=== PATIENT | female | born 1970 | race Caucasian/White ===

== ENCOUNTER → 2017-02-22 | Outpatient (CLI) | payer BC ==
[~2017-02-22] MED LIST: ECHI80CA PO; MELO-156 PO; PHEN15CA PO; PSYL0.5215 PO; SOY155CA PO; [UNRECOGNIZED DRUG - CODE] IV
--- NOTE | 2017-02-22 09:43 | RAD ---
DATE: 02/22/2017 EXAM: MAMMO [facility] SCREENING BILATERAL HISTORY: Routine screening COMPARISON: 02/17/2016 This study was interpreted with the benefit of Computerized Aided Detection (CAD). FINDINGS: 2-D and 3-D tomosynthesis imaging was performed in CC and MLO projections. There are scattered fibroglandular densities in the breasts. There is a cluster of 2 benign-appearing lymph node type densities in the posterolateral aspect of the right breast which appear unchanged. No new or enlarging breast densities are seen. No suspicious microcalcifications are evident. IMPRESSION: Stable mammograms without evidence of malignancy. BI-RADS CATEGORY: 2 BENIGN FINDING(S) RECOMMENDED FOLLOW-UP: 12M 12 MONTH FOLLOW-UP PQRS compliance statement: Patient information was entered into a reminder system with a target due date for the next mammogram. Mammography is a sensitive method for finding small breast cancers, but it does not detect them all and is not a substitute for careful clinical examination. A negative mammogram does not negate a clinically suspicious finding and should not result in delay in biopsying a clinically suspicious abnormality. "Our facility is accredited by the [employer]ammography [employer]."
== END | disposition home or self-care (01) ==
LOC: MAMMO 07:53
PROVIDERS: ATTEND Physician Assistant Medical
DX: Z12.31 Encounter for screening mammogram for malignant neoplasm of breast (principal)
CPT/HCPCS: 77063; G0202; 77067

== ENCOUNTER 2017-09-13 14:33 | Emergency (ER) | payer BC ==
[~2017-09-13 14:33] MED LIST changes: -MELO-156 PO; +MELO7.5T29 PO; -PHEN15CA PO; +PHEN15CA2 PO
[2017-09-13] MEDS ORDERED: BUPIVACAINE MPF 0.5% 30 ML VIAL. ONE (15:30)
[2017-09-13] MEDS ORDERED: BUPIVACAINE MPF 0.5% 30 ML VIAL. SQ ONE (15:45)
--- NOTE | 2017-09-13 15:51 | RAD ---
Indication injury to the third digit. AP view of the left foot was obtained as well as additional oblique and lateral imaging targeted to the third digit. There is a traumatic nondisplaced fracture involving the base of the tuft of the distal phalanx. No additional bony abnormality is seen. IMPRESSION: Fractured distal phalanx of the third digit
[2017-09-13] MEDS ORDERED: GELATIN SPONGE SIZE 12-7MM SPONGE. ONE (16:11)
[2017-09-13] MEDS ORDERED: AMOX1TAB61 PO (16:36)
--- NOTE | 2017-09-13 16:37 | PHYS DOC ---
Past History Past Medical History: Anemia Past Surgical History: Cholecystectomy, Gastric Bypass, Hysterectomy Alcohol Use: Occasionally Drug Use: None Adult General Chief Complaint Chief Complaint: FOOT INJURY PAIN [facility] HPI Patient is a 47 year old F who presents with injury to the left third toe. She was moving some pictures when she dropped one on her left foot. She notes that the left third toe nail was bleeding and seen to be peeled up from the back. The second and fourth toes also are painful. She had pain with walking however she was able to walk and transfer. Her pain does not radiate. She had no other associated symptoms. She had no other exacerbating or alleviating factors. Review of Systems Review of Systems Constitutional: Denies fever or chills [] Eyes: Denies change in visual acuity, redness, or eye pain [] HENT: Denies nasal congestion or sore throat [] Respiratory: Denies cough or shortness of breath [] Cardiovascular: No additional information not addressed in HPI [] GI: Denies abdominal pain, nausea, vomiting, bloody stools or diarrhea [] : Denies dysuria or hematuria [] Musculoskeletal: Negative except history of present illness Integument: Negative except history of present illness Neurologic: Denies headache, focal weakness or sensory changes [] Endocrine: Denies polyuria or polydipsia [] Family History Family History Noncontributory Current Medications Current Medications Medications reviewed Current Medications Medications (Trade) Dose Ordered Sig/José Start Time Stop Time Status Last Admin Dose Admin Bupivacaine HCl (Sensorcaine Mpf 0.5%) 30 ml STK-MED ONCE 09/13/17 15:30 09/13/17 15:31 DC Gelatin (Gelfoam Size 12-7mm) 1 each 1X ONCE 09/13/17 16:45 09/13/17 16:46 UNV Allergies Allergies Allergies Coded Allergies Type Severity Reaction Last Updated Verified morphine Allergy Unknown Nausea and Vomiting 09/13/17 Yes Physical Exam Physical Exam Constitutional: Well developed, well nourished, no acute distress, non-toxic appearance. [] HENT: Normocephalic, atraumatic, Eyes: EOMI, conjunctiva normal, no discharge. [] Neck: Normal range of motion, no tenderness, supple, no stridor. [] Cardiovascular:Heart rate regular rhythm, Lungs & Thorax: Bilateral breath sounds clear to auscultation [] Abdomen: Bowel sounds normal, soft, no tenderness, no masses, no pulsatile masses. [] Skin: Warm, dry, no erythema, no rash. [] Extremities: Exam limited to the left foot: Left third toe nail bed appears to be avulsed with the remainder of the distal nail attached to the nailbed. Mild oozing bleeding noted. Moderate tenderness to palpation over the second through fourth toes. Neurologic: Alert and oriented X 3, normal motor function, normal sensory function, no focal deficits noted. [] Psychologic: Affect normal, judgement normal, mood normal. [] Current Patient Data Vital Signs Vital Signs Date Time Temp Pulse Resp B/P (MAP) Pulse Ox O2 Delivery O2 Flow Rate FiO2 09/13/17 14:33 98.6 98 20 100 Room Air EKG EKG [] Radiology/Procedures Radiology/Procedures Left foot x-ray Impressions: Fracture of the distal third phalanx Course & Med Decision Making Course & Med Decision Making Pertinent Labs and Imaging studies reviewed. (See chart for details) Up-to-date was reviewed regarding nailbed injuries. He was advised that if the nail matrix was exposed that the nail should be removed prevent any further complications. This information was reviewed with Yuli. Risks and benefits were discussed. The alternative of following up with a seafood harvester for this procedure was offered. She did consent to the procedure verbally. Bupivacaine 0.5% 1 mL was placed at the base of the left third toe on either side for a digital block. Using curved Avelina's the toenail was grasped distally and using curved iris scissors the nail was slowly removed from the nailbed. This is were inserted distally underneath the nail and spread to gently removed tissue from the nail. The entire nail was removed and the wound was explored manually. Bleeding was controlled with Gelfoam and pressure dressing. She was monitored for an additional 20 minutes without significant bleeding. She did tolerate the procedure well. She was started on oral antibiotics to prevent infection given the fracture to the distal phalanx. Dragon Disclaimer Dragon Disclaimer This chart was dictated in whole or in part using Voice Recognition software in a busy, high-work load, and often noisy Emergency Department environment. It may contain unintended and wholly unrecognized errors or omissions. Departure Departure: Impression: Primary Impression: Nail avulsion, toe Disposition: HOME, SELF-CARE Condition: STABLE Referrals: JENNIFER DUMAS (PCP) Patient Instructions: Toenail Removal Additional Instructions: Yuli was seen in the emergency department for toe injury. No emergency medical condition was found on history or physical exam. She did have an x-ray which showed fracture of the third toe. She also had the remainder of that toenail removed. She was started on oral antibiotic to prevent infection. She is advised follow-up with podiatry or her primary care doctor in the next 3-5 days for further management. Scripts Amoxicillin/Potassium Clav (AUGMENTIN 875-125 TABLET) 1 Each Tablet 1 TAB PO BID for 3 Days, #6 TAB Prov: NICKIE ANGEL MD 09/13/17 Problem Qualifiers Primary Impression: Nail avulsion, toe Encounter type: initial encounter Qualified Codes: S91.209A - Unspecified open wound of unspecified toe(s) with damage to nail, initial encounter NICKIE ANGEL MD Sep 13, 2017 16:37
[2017-09-13 16:45] VITALS: BP 153/97
[2017-09-13] MEDS ORDERED: GELATIN SPONGE SIZE 12-7MM SPONGE. TP ONE (16:45)
[2017-09-13] MEDS ORDERED: AMOXICILLIN/K CLAV 875/125MG TABLET. PO ONE (17:00)
== END 2017-09-13 16:54 | disposition home or self-care (01) ==
LOC: ER 14:33
DX: S91.205A Unspecified open wound of left lesser toe(s) with damage to nail, initial encounter (principal); Z86.73 Personal history of transient ischemic attack (TIA), and cerebral infarction without residual deficits; Z98.84 Bariatric surgery status; Z88.5 Allergy status to narcotic agent; W20.8XXA Other cause of strike by thrown, projected or falling object, initial encounter; Y93.89 Activity, other specified; Y99.8 Other external cause status; Y92.89 Other specified places as the place of occurrence of the external cause
CPT/HCPCS: 11730; 73660; 99284; J3490

== ENCOUNTER 2017-11-09 08:54 | Emergency (ER) | payer BC ==
[~2017-11-09] VITALS: Ht 172.7 cm; Wt 90.7 kg
[~2017-11-09 08:54] MED LIST changes: +AMOX1TAB61 PO
[2017-11-09] MEDS ORDERED: PROCHLORPERAZINE 10 MG/2 ML VIAL. IM ONE (09:30)
[2017-11-09] MEDS ORDERED: ACETAMINOPHEN 500 MG TABLET PO ONE ×2 (09:30→09:34)
[2017-11-09] MEDS ORDERED: DEXAMETHASONE SOD PHOS 10 MG/ML VIAL IM ONE (09:30)
[2017-11-09] MEDS ORDERED: diphenhydrAMINE 50 MG/ML VIAL IM ONE (09:30)
[2017-11-09] MEDS ORDERED: TETRACAINE 0.5% OPHTH SOLUTION 4ML BOTTLE. OS ONE (09:30)
[2017-11-09] MEDS ORDERED: diphenhydrAMINE 50 MG/ML VIAL ONE (09:34)
[2017-11-09] MEDS ORDERED: DEXAMETHASONE SOD PHOS 10 MG/ML VIAL ONE (09:34)
[2017-11-09] MEDS ORDERED: TETRACAINE 0.5% OPHTH SOLUTION 4ML BOTTLE. ONE (09:34)
[2017-11-09] MEDS ORDERED: PROCHLORPERAZINE 10 MG/2 ML VIAL. ONE (09:34)
[2017-11-09] MEDS ORDERED: CYCL2DRO3 OP (09:40)
[2017-11-09] MEDS ORDERED: DIPH25CA58 PO (09:40)
[2017-11-09] MEDS ORDERED: PROC10TA57 PO (09:40)
[2017-11-09] MEDS ORDERED: NAPR-683 PO (09:40)
[2017-11-09] MEDS ORDERED: ERYT1OIN6 OP (09:40)
--- NOTE | 2017-11-09 09:40 | PHYS DOC ---
Past History Past Medical History: Migraines Past Surgical History: Cholecystectomy, Hysterectomy, Oophorectomy Alcohol Use: None Drug Use: None Adult General Chief Complaint Chief Complaint: HEADACHE HPI HPI She is a pleasant 47-year-old female with a known history of migraine disorder who presents with a headache that began last night. It is typical for her. It is not worst of life or sudden onset is not associated with any neck pain and stiffness or fevers. She admits she's also had some pain in her left eye associated with contact lens use. She has some photophobia and possible foreign body sensation with pain in the left eye. There is consensual photophobia and increased watering. She denies any direct trauma. She typically wears contact lenses and extended maybe where she was for 5-7 days without removal. She denies any URI symptoms, denies any visual loss, patient's pain is moderate 8 of 10 at this time. She has had some nausea without vomiting no focal neurologic deficits and no admitted trauma. Review of Systems Review of Systems Constitutional: Denies fever or chills [] Eyes: Denies change in visual acuity, but patient is having eye pain the left eye with some redness and tearing HENT: Denies nasal congestion or sore throat [] Respiratory: Denies cough or shortness of breath [] Cardiovascular: No additional information not addressed in HPI [] GI: Denies abdominal pain, vomiting, bloody stools or diarrhea but she is having some nausea. [] : Denies dysuria or hematuria [] Musculoskeletal: Denies back pain or joint pain [] Integument: Denies rash or skin lesions [] Neurologic: Denies focal weakness or sensory changes she is having some headache described as typical for her migraine not worst of life or sudden onset [] Endocrine: Denies polyuria or polydipsia [] All other systems were reviewed and found to be within normal limits, except as documented in this note. Allergies Allergies Allergies Coded Allergies Type Severity Reaction Last Updated Verified morphine Allergy Unknown Nausea and Vomiting 09/13/17 Yes Physical Exam Physical Exam Other vital signs that I can see recorded on the chart within normal limits. Constitutional: Well developed, well nourished, patient is nontoxic in appearance but obviously uncomfortable with a depth towel over her eyes.[] HENT: Normocephalic, atraumatic, bilateral external ears normal, oropharynx moist, no oral exudates, nose normal. [] Eyes: PERRLA, EOMI, conjunctiva injected in the left eye. There is clear signs of a small abrasion 3 clock position patient 3 mm in size without Nikolai sign or evidence of dendrites or rink sign., no discharge. [] Neck: Normal range of motion, no tenderness, supple, no stridor. [] Cardiovascular:Heart rate regular rhythm, no murmur [] Lungs & Thorax: Bilateral breath sounds clear to auscultation []s. [] Skin: Warm, dry, no erythema, no rash. [] Neurologic: Alert and oriented X 3, normal motor function, normal sensory function, no focal deficits noted. [] Psychologic: Affect normal, judgement normal, mood normal. [] Current Patient Data Vital Signs Vital Signs Date Time Temp Pulse Resp B/P (MAP) Pulse Ox O2 Delivery O2 Flow Rate FiO2 11/09/17 09:09 98.0 80 20 98 Room Air EKG EKG [] Radiology/Procedures Radiology/Procedures [] Course & Med Decision Making Course & Med Decision Making Pertinent Labs and Imaging studies reviewed. (See chart for details) Patient tells me that their symptoms given during CC are improved. She received IM Benadryl, Decadron, Compazine, and Tylenol. Patient also had an eye exam facilitated by tetracaine and foreign seen stain in the left eye it was noted that she had a small corneal abrasion about 3 clock position with no evidence of Nikolai's, Rink sign, dendrites or other shallow ulcers. Patient I had a long conversation about ocular safety and not using contact lenses from longer than 12-24 hours.. I also would advise that she follow up with delivery specialist to get put into a daily disposable lenses to help prevent secondary infections. I also encouraged her not use contact lenses for the next 2 weeks until that she seen by her delivery specialist or network operations specialist for repeat slit lamp examination. [facility] headache reevaluation: The patient presented to the emergency part with headache. The patient is now resting comfortably and feels better, is awake, talkative, interactive, and in no acute distress. The patient appears well and is able to tolerate by mouth fluids and medications. Repeat evaluation is unremarkable without any specific neurologic findings. The patient is neurologically intact, has normal mental status, and is ambulatory in the ED. The history, exam, and any diagnostic testing completed in the ED (if any) and the patient's current condition do not suggest meningitis, stroke, sepsis, subarachnoid hemorrhage, intracranial bleed , encephalitis, temporal arteritis, or other significant pathology warranting further testing and continue treatment in the ED. At this point I do not believe admission or neurologic consultation or other specialist evaluation are needed at this point. The patient's vital signs have been stabilized. Patient' s condition is stable and appropriate for discharge. The patient will pursue further up and evaluation with primary care and other designated resources or consulting physicians as indicated in the discharge instructions. [] Dragon Disclaimer Dragon Disclaimer This electronic medical record was generated, in whole or in part, using a voice recognition dictation system. Departure Departure: Impression: Primary Impression: Migraine Additional Impression: Corneal abrasion Disposition: HOME, SELF-CARE Condition: STABLE Referrals: JENNIFER DUMAS (PCP) Patient Instructions: Eye - Corneal Abrasion, Migraine Headache Additional Instructions: discharge: I've spoken with the patient and/or caregivers. I've explained the patient's condition, diagnosis and treatment plan based on information available to me at this time. I've answered the patient's and/or caregivers questions and addressed any concerns. The patient and/or caregivers have a good understanding the patient's diagnosis, condition and treatment plan as can be expected at this point. Vital signs have been stabilized. The patient's condition is stable for discharge from the emergency department. The patient will pursue further outpatient evaluation with her primary care provider or other designated consulting physician as outlined in the discharge instructions. Patient and/or caregivers are agreeable to this plan of care and follow-up instructions have been explained in detail. The patient and/or caregivers have received these instructions in written format and expressed understanding of these discharge instructions. The patient and her caregivers are aware that if any significant change in condition or worsening of symptoms should prompt him to immediately return to this of the closest emergency department. If an emergent department is not readily available I would encourage him to call 911. Scripts Cyclopentolate Hcl (CYCLOGYL) 2 Ml Drops 2 ML OP BID for 3 Days, DROP Prov: RAVEN HERNANDEZ MD 11/09/17 Naproxen (NAPROSYN) 500 Mg Tablet 1 TAB PO BID, #20 TAB 1 Refill Prov: RAVEN HERNANDEZ MD 11/09/17 Prochlorperazine Maleate (Compazine) 10 Mg Tablet 10 MG PO TID Y for NAUSEA for 5 Days, #15 TAB Prov: RAVEN HERNANDEZ MD 11/09/17 Erythromycin Base (Erythromycin) 1 Gm Oint...g. 1 GM OP TID for 5 Days, MISC Prov: RAVEN HERNANDEZ MD 11/09/17 Diphenhydramine Hcl (BENADRYL) 25 Mg Capsule 25 MG PO QID for 7 Days, #28 CAP Prov: RAVEN HERNANDEZ MD 11/09/17 Problem Qualifiers RAVEN HERNANDEZ MD Nov 09, 2017 09:40
[2017-11-09] MEDS ORDERED: FLUORESCEIN 1MG EYE STRIP. OS ONE (09:45)
[2017-11-09 10:33] VITALS: BP 144/79
== END 2017-11-09 10:40 | disposition home or self-care (01) ==
LOC: ER 08:54
DX: G43.909 Migraine, unspecified, not intractable, without status migrainosus (principal); S05.02XA Injury of conjunctiva and corneal abrasion without foreign body, left eye, initial encounter; X58.XXXA Exposure to other specified factors, initial encounter; Y93.89 Activity, other specified; Y99.8 Other external cause status; Y92.89 Other specified places as the place of occurrence of the external cause; Z88.5 Allergy status to narcotic agent
CPT/HCPCS: 96372; 99284; J0780; J1100; J1200

== ENCOUNTER 2017-12-12 14:16 | Emergency (ER) | payer OTHER, BC ==
[~2017-12-12 14:16] MED LIST changes: +CYCL2DRO3 OP; +DIPH25CA58 PO; +ERYT1OIN6 OP; +NAPR-683 PO; +PROC10TA57 PO
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
[2017-12-12 16:50] VITALS: BP 146/89
== END 2017-12-12 16:50 | disposition home or self-care (01) ==
LOC: ER 14:16
DX: S00.83XA Contusion of other part of head, initial encounter (principal); R20.2 Paresthesia of skin; G43.909 Migraine, unspecified, not intractable, without status migrainosus; Z88.5 Allergy status to narcotic agent; V89.2XXA Person injured in unspecified motor-vehicle accident, traffic, initial encounter; Y93.89 Activity, other specified; Y92.89 Other specified places as the place of occurrence of the external cause; Y99.8 Other external cause status
CPT/HCPCS: 99281

== ENCOUNTER → 2018-07-13 | Outpatient (CLI) | payer BC ==
--- NOTE | 2018-07-19 08:59 | RAD ---
DATE: 07/13/2018 5:00 PM EXAM: MAMMO [facility] SCREENING BILATERAL HISTORY: routine screening evaluation. COMPARISON: 02/22/2017, 02/17/2016, 01/24/2015 01/10/2014 01/02/2013 Bilateral CC and MLO views of the breasts were performed. Bilateral breast tomosynthesis was performed in CC and MLO projections. This study was interpreted with the benefit of Computerized Aided Detection (CAD ). Breast Density: The breast parenchyma shows scattered fibroglandular densities. Breast parenchyma level B. FINDINGS: No suspicious masses, microcalcifications or architectural distortion is present to suggest malignancy in either breast. The visualized axillae are unremarkable. IMPRESSION: No mammographic evidence of malignancy. BI-RADS CATEGORY: 1 NEGATIVE RECOMMENDED FOLLOW-UP: 12M 12 MONTH FOLLOW-UP Annual screening mammography is recommended, unless clinically indicated sooner based on symptoms or change in physical exam. PQRS compliance statement: Patient information was entered into a reminder system with a target due date for the next mammogram. Mammography is a sensitive method for finding small breast cancers, but it does not detect them all and is not a substitute for careful clinical examination. A negative mammogram does not negate a clinically suspicious finding and should not result in delay in biopsying a clinically suspicious abnormality. "Our facility is accredited by the [employer] Mammography [employer]." PEGGYD
== END | disposition home or self-care (01) ==
LOC: MAMMO 14:42
PROVIDERS: ATTEND Physician Assistant Medical
DX: Z12.31 Encounter for screening mammogram for malignant neoplasm of breast (principal); I10 Essential (primary) hypertension; G43.909 Migraine, unspecified, not intractable, without status migrainosus; Z88.5 Allergy status to narcotic agent; Z86.73 Personal history of transient ischemic attack (TIA), and cerebral infarction without residual deficits; Z90.721 Acquired absence of ovaries, unilateral; Z90.710 Acquired absence of both cervix and uterus
CPT/HCPCS: 77063; 77067

== ENCOUNTER → 2020-01-02 | Outpatient (CLI) | payer BC ==
--- NOTE | 2020-01-03 11:37 | RAD ---
History: Routine Screening. Technique: Bilateral digital mammographic routine views were obtained with 2-D and 3-D technique and reviewed with CAD - computer aided detection. Comparison: 07/13/2018. Findings: Breast Tissue Density A : The breast tissue is predominately fatty replaced. There are no suspicious masses, microcalcifications or areas of architectural distortion. Impression: Negative mammogram. BI-RADS Category 1: Negative. Normal interval followup. . A mammogram does not have 100% sensitivity and therefore a negative imaging study should not delay further work up of a suspicious abnormality. The patient will receive a letter with the results in the mail. Patient information is entered into the reminder system with a target due date for the next screening mammogram. The patient will receive a reminder. "Our facility is accredited by the [employer] Mammography [employer]." BI-RADS 1 -- negative findings (within normal)
== END | disposition home or self-care (01) ==
LOC: MAMMO 08:58
PROVIDERS: ATTEND Physician Assistant Medical
DX: Z12.31 Encounter for screening mammogram for malignant neoplasm of breast (principal); N64.89 Other specified disorders of breast
CPT/HCPCS: 77063; 77067

== ENCOUNTER → 2021-01-17 | Outpatient (CLI) | payer BC ==
--- NOTE | 2021-01-20 10:32 | RAD ---
DATE: 01/17/2021 9:55 AM EXAM: MAMMO MARIA TERESA SCREENING BILATERAL HISTORY: Screening COMPARISON: 01/02/2020 Bilateral CC and MLO views of the breasts were performed. Bilateral breast tomosynthesis was performed in CC and MLO projections. This study was interpreted with the benefit of Computerized Aided Detection (CAD). FINDINGS: Breast Density: FATTY The Breast Parenchyma is primarily fatty replaced. Breast parenchyma level density A. No suspicious masses, microcalcifications or architectural distortion is present to suggest malignancy in either breast. The visualized axillae are unremarkable. IMPRESSION: No mammographic evidence of malignancy. BI-RADS CATEGORY: 1 NEGATIVE RECOMMENDED FOLLOW-UP: 12M 12 MONTH FOLLOW-UP Annual screening mammography is recommended, unless clinically indicated sooner based on symptoms or change in physical exam. PQRS compliance statement: Patient information was entered into a reminder system with a target due date for the next mammogram. Mammography is a sensitive method for finding small breast cancers, but it does not detect them all and is not a substitute for careful clinical examination. A negative mammogram does not negate a clinically suspicious finding and should not result in delay in biopsying a clinically suspicious abnormality. "Our facility is accredited by the [employer] Mammography Program."
== END ==
LOC: MAMMO 09:30
PROVIDERS: ATTEND Physician Assistant Medical
DX: Z12.31 Encounter for screening mammogram for malignant neoplasm of breast (principal)
CPT/HCPCS: 77063; 77067